=== PATIENT | male | born 1990 | race Caucasian/White ===

== ENCOUNTER 2019-07-26 22:21 | Emergency (ER) | payer BC ==
--- NOTE | 2019-07-26 23:07 | EDM.PDOC ---
ED HPI GENERAL MEDICAL PROBLEM - General Chief Complaint: Lower Extremity Injury/Pain Stated Complaint: INJURED PINKY TOE ON LEFT FOOT Time Seen by Provider: 07/26/19 22:28 Source of Information: Reports: Patient History Limitations: Reports: No Limitations - History of Present Illness INITIAL COMMENTS - FREE TEXT/NARRATIVE: The patient presents with a left 5th toe injury. They have a puppy and they had something blocking the door and he stubbed his left 5th toe. He has no other injury. Onset: Sudden Duration: Minutes: Location: Reports: Lower Extremity, Left (5th toe) Quality: Reports: Sharp Severity: Moderate Improves with: Reports: Immobilization Worsens with: Reports: Movement Context: Reports: Trauma (Stubbed his toe) Associated Symptoms: Reports: No Other Symptoms Left Toe-Little Pain Score (Numeric/FACES): 7 - Related Data Allergies Allergy/AdvReac Type Severity Reaction Status Date / Time No Known Allergies Allergy Verified 07/26/19 22:31 Past Medical History - Past Health History Medical/Surgical History: Denies Medical/Surgical History Social & Family History - Tobacco Use Smoking Status *Q: Never Smoker Second Hand Smoke Exposure: No - Caffeine Use Caffeine Use: Reports: None - Recreational Drug Use Recreational Drug Use: No Review of Systems - Review of Systems Review Of Systems: See Below Constitutional: Reports: No Symptoms Eyes: Reports: No Symptoms Ears: Reports: No Symptoms Nose: Reports: No Symptoms Mouth/Throat: Reports: No Symptoms Respiratory: Reports: No Symptoms Cardiovascular: Reports: No Symptoms GI/Abdominal: Reports: No Symptoms Genitourinary: Reports: No Symptoms Musculoskeletal: Reports: Other (Left 5th toe pain and swelling) ED EXAM, GENERAL - Physical Exam Exam: See Below Exam Limited By: No Limitations General Appearance: Alert, No Apparent Distress Ears: Normal External Exam Nose: Normal Inspection Head: Atraumatic Neck: Normal Inspection Respiratory/Chest: No Respiratory Distress Extremities: Other (Pain upon palpation to the left 5th toe with some edema. Good sensation and capillary refill distally.) Course - Vital Signs Last Recorded V/S: Last Vital Signs Temp 97.2 F 07/26/19 22:29 Pulse 100 07/26/19 22:29 Resp 18 07/26/19 22:29 BP 147/86 H 07/26/19 22:29 Pulse Ox 97 07/26/19 22:29 - Orders/Labs/Meds Orders: Active Orders 24 hr Category Date Time Status Toes Fifth Digit Lt T4 [CR] Stat Exams 07/26/19 22:31 Taken Durable Medical Equipment for Discharge [DME for Oth 07/26/19 23:01 Ordered Discharge] [COMM] Stat - Re-Assessments/Exams Free Text/Narrative Re-Assessment/Exam: 07/26/19 23:04 I did an x-ray and there is a proximal phalynx fracture of the 5th toe. I will get him in a post op shoe and have him follow up with Dr Nicholson or Dr Fry. Departure - Departure Time of Disposition: 23:10 Disposition: Home, Self-Care 01 Condition: Good Clinical Impression: Fracture of fifth toe, left, closed Qualifiers: Encounter type: initial encounter Qualified Code(s): S92.502A - Displaced unspecified fracture of left lesser toe(s), initial encounter for closed fracture - Discharge Information *PRESCRIPTION DRUG MONITORING PROGRAM REVIEWED*: Not Applicable *COPY OF PRESCRIPTION DRUG MONITORING REPORT IN PATIENT BINTA: Not Applicable Referrals: PCP,None [Primary Care Provider] - Merlin Nicholson MD [Physician] - 1 Week Additional Instructions: Ice your toe for 15 minutes 3 times per day for 2 days. Elevate your foot as much as you can for 2 days. Take tylenol or motrin for pain. Follow up with Dr Nicholson or you could follow up with Dr Vargas or Dr Rosa at [facility]. Please return if you are worse. Sepsis Event Note - Evaluation Sepsis Screening Result: No Definite Risk - Focused Exam Vital Signs: Vital Signs Temp Pulse Resp BP Pulse Ox 07/26/19 22:29 97.2 F 100 18 147/86 H 97 Date Exam was Performed: 07/26/19 Time Exam was Performed: 23:02 - My Orders Last 24 Hours: My Active Orders 07/26/19 22:31 Toes Fifth Digit Lt T4 [CR] Stat 07/26/19 23:01 Durable Medical Equipment for Discharge [DME for Discharge] [COMM] Stat - Assessment/Plan Last 24 Hours: My Active Orders 07/26/19 22:31 Toes Fifth Digit Lt T4 [CR] Stat 07/26/19 23:01 Durable Medical Equipment for Discharge [DME for Discharge] [COMM] Stat
--- NOTE | 2019-07-27 07:06 | CR ---
Left 5th toe: Three views centered to the left 5th toe were obtained. Fracture is identified within the proximal phalanx of the left 5th toe. Alignment is close to anatomic. Soft tissue swelling is identified. Old ununited fracture appears to be present within the base of the 5th metatarsal. Impression: 1. Acute nondisplaced fracture within the proximal phalanx of the left 5th toe. 2. Old appearing ununited fracture involving the base of the 5th metatarsal. 3. Soft tissue swelling. Diagnostic code #3 This report was dictated in [place] Standard Time
== END 2019-07-26 22:32 | disposition home or self-care (01) ==
LOC: JD.ED 22:21
DX: S92.515A Nondisplaced fracture of proximal phalanx of left lesser toe(s), initial encounter for closed fracture (principal); W22.8XXA Striking against or struck by other objects, initial encounter
CPT/HCPCS: 73660-26-T4; 73660-T4; 99283-25

== ENCOUNTER 2023-09-22 13:55 | Emergency (ER) | payer BC ==
[2023-09-22] MEDS: Magnesium Citrate Solution 296 ML Bottle PO ONE (15:05)
== END 2023-09-22 15:06 | disposition home or self-care (01) ==
LOC: JD.ED 13:55
DX: R10.32 Left lower quadrant pain (principal)
CPT/HCPCS: 74018; 99284; A9270; 99282